=== PATIENT | female | born 1990 | race Caucasian/White ===

== ENCOUNTER 2022-10-19 18:38 | Outpatient (CLI) | payer OTHER | END 2022-10-19 18:39 | disposition short-term general hospital (02) | LOC: EMS 18:38 | DX: S89.92XA Unspecified injury of left lower leg, initial encounter (principal); M25.572 Pain in left ankle and joints of left foot; W10.8XXA Fall (on) (from) other stairs and steps, initial encounter; Y93.01 Activity, walking, marching and hiking; Y92.008 Other place in unspecified non-institutional (private) residence as the place of occurrence of the external cause | CPT/HCPCS: A0425; A0427 ==

== ENCOUNTER 2023-01-09 19:47 | Outpatient (CLI) | payer OTHER ==
[2023-01-09 20:45] LABS: HCG,QUALITATIVE BLOOD POSITIVE
== END 2023-01-09 19:48 | disposition home or self-care (01) ==
LOC: LAB 19:47
PROVIDERS: ATTEND Family Medicine
DX: N91.2 Amenorrhea, unspecified (principal)
CPT/HCPCS: 36415; 84703

== ENCOUNTER 2023-01-14 10:09 | Outpatient (CLI) | payer OTHER ==
[2023-01-15 10:41] LABS: BILIRUBIN,URINE NEGATIVE (NEGATIVE); GLUCOSE, URINE (UA) NEGATIVE (NEGATIVE); KETONES,URINE (UA) NEGATIVE (NEGATIVE); LEUKOCYTE ESTERASE, URINE TRACE (NEGATIVE); NITRITE,URINE NEGATIVE (NEGATIVE); OCCULT BLOOD,URINE LARGE (NEGATIVE); PH,URINE 6.5 PH (5.0-7.5); PROTEIN,URINE NEGATIVE (NEGATIVE); UROBILINOGEN,URINE 0.2 (NORMAL) E.U./dL (NORMAL)
[2023-01-15 10:52] LABS: CLARITY,URINE HAZY (CLEAR)
[2023-01-15 11:17] LABS: BACTERIA,URINE Many /HPF (None Seen); RBC,URINE 0-5 /HPF (0-5); SQUAMOUS EPITHELIAL CELL,UR MANY Squamous (<= Few)
[2023-01-15 19:37] LABS: BACTERIAL VAGINOSIS DNA NEGATIVE (NEGATIVE); CANDIDA GLABRATA DNA NEGATIVE (NEGATIVE); CANDIDA GROUP DNA NEGATIVE (NEGATIVE); CANDIDA KRUSEI DNA NEGATIVE (NEGATIVE); TRICHOMONAS VAGINALIS DNA NEGATIVE (NEGATIVE)
[2023-01-15 20:55] LABS: CHLAMYDIA TRACHOMATIS DNA NEGATIVE (NEGATIVE); NEISSERIA GONORRHOEAE DNA NEGATIVE (NEGATIVE)
== END 2023-01-14 10:10 | disposition home or self-care (01) ==
LOC: LAB.WC 10:09
PROVIDERS: ATTEND Nurse Practitioner
DX: O99.891 Other specified diseases and conditions complicating pregnancy (principal); N89.8 Other specified noninflammatory disorders of vagina
CPT/HCPCS: 81001; 81514; 87086; 87491; 87591; 87661

== ENCOUNTER 2023-01-14 16:17 | Outpatient (CLI) | payer OTHER ==
[2023-01-14 17:13] LABS: BASOPHILS # (AUTO) 0.1 10^3/uL (0.0-0.1); BASOPHILS % (AUTO) 0.6 %; EOSINOPHILS # (AUTO) 0.2 10^3/uL (0.0-0.7); EOSINOPHILS % (AUTO) 1.5 %; HGB - HEMOGLOBIN 12.6 g/dL (12.0-16.0); LYMPHOCYTES # (AUTO) 2.8 10^3/uL (1.5-3.5); LYMPHOCYTES % (AUTO) 21.4 %; MEAN CORPUSCULAR HEMOGLOBIN 29.6 pg (27.0-31.0); MEAN CORPUSCULAR HGB CONC 32.3 g/dL (32.0-36.0); MEAN CORPUSCULAR VOLUME 91.8 fL (81.0-99.0); MEAN PLATELET VOLUME 10.5 fL (7.9-10.8); MONOCYTES # (AUTO) 0.8 10^3/uL (0.0-1.0); NEUTROPHILS # (AUTO) 9.3 10^3/uL (1.5-6.6); PLT - PLATELET COUNT 299 10^3/uL (130-450); RED BLOOD COUNT 4.25 10^6/uL (4.20-5.40); RED CELL DISTRIBUTION WIDTH 12.9 % (12.0-15.0); WHITE BLOOD COUNT 13.2 x10^3/uL (4.8-10.8)
[2023-01-16 08:10] LABS: RPR Non Reactive (Non Reactive)
[2023-01-16 10:09] LABS: HBsAG SCREEN Negative (Negative)
[2023-01-16 11:10] LABS: VARICELLA-ZOSTER AB IGG 922 index (Immune >165)
[2023-01-17 00:08] LABS: HCV AB Non Reactive (Non Reactive); HIV SCREEN 4TH GENERATION Non Reactive (Non Reactive)
== END 2023-01-14 16:18 | disposition home or self-care (01) ==
LOC: LAB 16:17
PROVIDERS: ATTEND Nurse Practitioner
DX: Z34.01 Encounter for supervision of normal first pregnancy, first trimester (principal)
CPT/HCPCS: 36415; 81001; 81599; 85025; 86592; 86762; 86787; 86803; 86850; 86870; 86880; 86900; 86901; 87086; 87340; 87389; 87491; 87591; 87661

== ENCOUNTER 2023-01-20 08:00 | Outpatient (CLI) | payer OTHER ==
[2023-01-20 11:54] LABS: BILIRUBIN,URINE NEGATIVE (NEGATIVE); GLUCOSE, URINE (UA) NEGATIVE (NEGATIVE); KETONES,URINE (UA) NEGATIVE (NEGATIVE); LEUKOCYTE ESTERASE, URINE LARGE (NEGATIVE); NITRITE,URINE NEGATIVE (NEGATIVE); OCCULT BLOOD,URINE LARGE (NEGATIVE); PROTEIN,URINE NEGATIVE (NEGATIVE); UROBILINOGEN,URINE 0.2 (NORMAL) E.U./dL (NORMAL)
[2023-01-20 11:55] LABS: CLARITY,URINE CLOUDY (CLEAR)
[2023-01-20 12:01] LABS: WBC CLUMPS,URINE PRESENT; WBC,URINE >25 /HPF (0-5)
[2023-01-20 12:02] LABS: BACTERIA,URINE Moderate /HPF (None Seen); SQUAMOUS EPITHELIAL CELL,UR FEW Squamous (<= Few)
== END 2023-01-20 23:59 | disposition home or self-care (01) ==
LOC: LAB.WC 08:00
PROVIDERS: ATTEND Nurse Practitioner
DX: R30.0 Dysuria (principal)
CPT/HCPCS: 81001; 81003; 87086; 87181

== ENCOUNTER 2023-01-30 19:59 | Outpatient (CLI) | payer OTHER ==
--- NOTE | 2023-01-31 16:00 | Ultrasound Report ---
PROCEDURE: OB First Trimester INDICATIONS: POSITIVE TEST OUTSIDE/PRIOR DATING DATA: Last menstrual period (LMP): Unknown. LMP-based estimated date of delivery (SARA): Unknown. First dating scan (date and location): 01/20/2023. Estimated date of delivery (SARA) from first dating scan: 08/25/2023. TECHNIQUE: Real-time scanning was performed of the fetus and maternal pelvic organs, with image documentation. COMPARISON: FINDINGS: Embryo: Single live intrauterine is identified with crown-rump length measuring 3.5 cm coa rse 9-10 weeks 3 days. Heart rate: 1 78 bpm Measurement variability in dating: +/- 4 weeks by LMP, +/- 7 days by mean sac diameter (use before 6 weeks gestation if crown-rump length not able to be measured), +/- 5 days by crown-rump length (6-12 weeks gestation). Maternal organs: Ovaries are unremarkable. IMPRESSION: Single live intrauterine with ultrasound gestational age of 10 weeks 3 days. Recommend follow-up imaging at 20-22 weeks for dates and anatomy. Reviewed by: Ceci Quiles MD on 01/31/2023 3:58 PM PDT Approved by: Ceci Quiles MD on 01/31/2023 3:58 PM PDT Station ID: [id number]
== END 2023-01-30 20:00 | disposition home or self-care (01) ==
LOC: DI 19:59
PROVIDERS: ATTEND Nurse Practitioner
DX: Z34.01 Encounter for supervision of normal first pregnancy, first trimester (principal)

== ENCOUNTER 2023-03-12 16:37 | Outpatient (CLI) | payer OTHER | END 2023-03-12 16:38 | disposition home or self-care (01) | LOC: LAB 16:37 | PROVIDERS: ATTEND Nurse Practitioner Obstetrics & Gynecology | DX: Z13.79 Encounter for other screening for genetic and chromosomal anomalies (principal) | CPT/HCPCS: 36415 ==

== ENCOUNTER 2023-04-07 16:52 | Outpatient (CLI) | payer OTHER ==
--- NOTE | 2023-04-08 20:37 | Ultrasound Report ---
PROCEDURE: OB Detailed Eval INDICATIONS: SUPERVISION OF OUTSIDE/PRIOR DATING DATA: Last menstrual period (LMP): Unknown. LMP-based estimated date of delivery (SARA): Unknown. First dating scan (date and location): 01/30/2023. Estimated date of delivery (SARA) from first dating scan: 08/25/2023. The below data below was generated using the ultrasound SARA of 08/25/2023 TECHNIQUE: Real-time scanning was performed of the fetus, with image documentation and biometric measurements. COMPARISON: OB ultrasound 01/30/2023 FINDINGS: General: A single living intrauterine gestation is present. Presentation: Very Placenta: Placental position is posterior, without previa. Amniotic fluid index: 12.4 cm, within normal limits for gestational age. heart rate: 157 beats per minute. Maternal cervical canal: 3.8 cm long; normal length is 2.5 cm or more. biometrics: Biparietal diameter: 4.5 cm 20 weeks 5 Head circumference: 17.4 cm 20 weeks 0 days Abdominal circumference: 14.9 cm 20 weeks 1 day Femur length: 3.3 cm 20 weeks 2 days Estimated gestational age from initial scan: 20 weeks 0 days Composite gestational age from present scan: 19 weeks 6 days Estimated weight and percentile: 338 g 57th percentile Measurement variability in biometric dating: +/- 10 days from 12-20 weeks gestation, +/- 2 weeks from 20-30 weeks gestation, +/- 3 weeks at 30 weeks gestation or later. Anatomic survey: Neuro: Ventricles are normal at less than 10 mm. Cisterna magna is normal at 3-11 mm. Cerebellum i s normal in size and morphology. Nuchal skin fold: Normal at less than 6 mm between 14 and 20 weeks gestational age. Face: Nose and lips, facial profile are normal. Spine: No evidence for spina bifida. Heart: 4-chambered heart is present, with normal ventricular outflow tracts. Diaphragm: Diaphragm is intact. Stomach: Left-sided stomach is present. Kidneys: No hydronephrosis. Normal is less than 5 mm in 2nd trimester, less than 7 mm in 3rd trimester. Cord: 3 vessel cord has orthotopic insertion. Bladder: Normal in size. Extremities: All 4 extremities are visualized. IMPRESSION: Single live intrauterine with ultrasound gestational age today of 19 weeks 6 days. Anatomy is within normal limits. Reviewed by: Ceci Quiles MD on 04/08/2023 8:36 PM PDT Approved by: Ceci Quiles MD on 04/08/2023 8:36 PM PDT Station ID: [id number]
== END 2023-04-07 16:53 | disposition home or self-care (01) ==
LOC: DI 16:52
PROVIDERS: ATTEND Nurse Practitioner Obstetrics & Gynecology
DX: Z34.02 Encounter for supervision of normal first pregnancy, second trimester (principal); Z36.89 Encounter for other specified antenatal screening

== ENCOUNTER 2023-05-26 12:08 | Outpatient (CLI) | payer OTHER ==
[2023-05-26 13:35] LABS: HCT - HEMATOCRIT 32.1 % (37.0-47.0); HGB - HEMOGLOBIN 10.6 g/dL (12.0-16.0); MEAN CORPUSCULAR HEMOGLOBIN 30.9 pg (27.0-31.0); MEAN CORPUSCULAR VOLUME 93.6 fL (81.0-99.0); MEAN PLATELET VOLUME 9.9 fL (7.9-10.8); RED BLOOD COUNT 3.43 10^6/uL (4.20-5.40); RED CELL DISTRIBUTION WIDTH 13.3 % (12.0-15.0); WHITE BLOOD COUNT 13.8 x10^3/uL (4.8-10.8)
== END 2023-05-26 12:09 | disposition home or self-care (01) ==
LOC: LAB 12:08
PROVIDERS: ATTEND Nurse Practitioner Obstetrics & Gynecology
DX: Z36.9 Encounter for antenatal screening, unspecified (principal)
CPT/HCPCS: 36415; 82950; 85027

== ENCOUNTER 2023-08-09 02:25 | Outpatient (CLI) | payer OTHER ==
[2023-08-09 03:13] LABS: RUPTURE OF MEMBRANES PLUS POSITIVE (NEGATIVE)
--- NOTE | 2023-08-09 03:53 | PROVIDER PROGRESS NOTE ---
- HPI Chief Complaint: Leakage of vaginal fluid Current : Current EDU 08/25/23 Gestation 37 Weeks and 5 Days 1 Para 0 Vital Signs Temperature 98.1 F 08/09/23 02:39 Heart Rate 87 08/09/23 02:39 Respiratory Rate 18 08/09/23 02:39 Blood Pressure 146/74 H 08/09/23 02:39 Temperature 98.1 F 08/09/23 02:39 Heart Rate 87 08/09/23 02:39 Respiratory Rate 18 08/09/23 02:39 Blood Pressure 146/74 H 08/09/23 02:39 O2 Saturation If not protocol: Oxygen Flow, liters/minute - Procedures OB Procedure Performed: NST Diagnosis/Indication for NST: Other (rupture of membranes) NST Procedure: NST Procedure Start Date 08/09/23 Start Time 02:56 Stop Time 03:06 Vibroacoustic Stimulation Used No Patient States Movement Yes Service Date of procedure: 08/09/23 (Read 08/09/23) - Plan Plan: Patient is a 33-year-old G1, P0 at 37 weeks 5 days gestation presenting to triage for rupture membranes. She did leave a message for her pyridine recovery operator and is waiting a call back. She has good movement. No vaginal bleeding she denies headache, right upper quadrant pain, changes in vision. No fever or chills. Physical Exam Constitutional: alert, no acute distress, well hydrated, well developed, well nourished, appropriate dress. Cardiovascular: Regular rate and rhythm. Respiratory: no respiratory distress. Abdomen: nondistended, nontender, no guarding. Psych: affect and mood appropriate, normal interaction, good eye contact. Ext: RLE mild swelling post surgery. SVE: 0/0/-3 FHT: 125 bpm baseline, moderate variability, accelerations present, no decelerations. Reactive NST [place]: 2 to 7 minutes, irregular ROM plus: Positive Bedside ultrasound: Cephalic Reviewed GBS negative status Assessment and plan Rupture of membranes -Discussed the usual process is to admit and observe for contractions and to start oxytocin if not starting soon. Patient does not want to stay for admission and prefers to labor at home. -Discussed that a period of expectant management is reasonable for up to 12 to 24 hours per ACOG while assuring wellbeing. As she is GBS negative, cephalic presentation, category 1, and otherwise well, this is reasonable. -Discussed warning signs such as change in amniotic fluid characteristics including meconium or blood, maternal fever or chills, and decreased movements. -Patient like to go home and will return in a maximum of 6 hours if not laboring.
[2023-08-09 04:10] VITALS: BP 137/75
--- NOTE | 2023-08-09 08:28 | Labor Flowsheet ---
Labor Flowsheet Datetime Report Generated by CPN: 08/09/2023 08:28 Datetime: 08/09/2023 08:14 Pulse: 83 SpO2 (%): 99 Datetime: 08/09/2023 08:10 VITAL SIGNS NBP Sys/Tere/Mean (mmHg): 126 : 86 : 96
== END 2023-08-09 04:08 | disposition home or self-care (01) ==
LOC: WFO 02:25 → FBP 02:27 → WFO 04:08
PROVIDERS: ATTEND Obstetrics & Gynecology
DX: O09.513 Supervision of elderly primigravida, third trimester (principal); Z3A.37 37 weeks gestation of pregnancy
CPT/HCPCS: 59025; 84112; 99213